=== PATIENT | male | born 1950 | race African-American/Black ===

== ENCOUNTER 2022-11-23 18:05 | Emergency (ER) | payer OTHER ==
[2022-11-23] MEDS ORDERED: Bupivacaine PF 0.5% 30 ML VIAL ONE (20:30)
== END 2022-11-23 21:09 ==
LOC: CSHERS 18:05
DX: L02.31 Cutaneous abscess of buttock (principal); I25.2 Old myocardial infarction; Z87.891 Personal history of nicotine dependence; I10 Essential (primary) hypertension; E11.9 Type 2 diabetes mellitus without complications
CPT/HCPCS: 10060; S0020